=== PATIENT | female | born 1975 | race Caucasian/White ===

== ENCOUNTER 2018-06-30 11:00 | Emergency (ER) | payer BC ==
[~2018-06-30] VITALS: Ht 152.4 cm; Wt 47.3 kg
[~2018-06-30 11:00] MED LIST: BIRTH CONTROL PO
[2018-06-30 11:04] VITALS: Ht 152.4 cm; Wt 47.3 kg
[2018-06-30] MEDS ORDERED: KETOROLAC 15 MG INJ IV STA (11:21)
[2018-06-30] MEDS ORDERED: ACETAMINOPHEN 325 MG TAB PO STA (11:21)
[2018-06-30] MEDS ORDERED: ONDANSETRON 4 MG INJ IV STA (11:21)
[2018-06-30] MEDS ORDERED: SOD CHLORIDE 0.9% 1,000 ML IV STA (11:21)
--- NOTE | 2018-06-30 11:25 | ERD ---
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, RN in L&D, presents to the emergency department, complaining of worsening of symptoms including headache, body aches, dizziness, nausea and vomiting x5 during the last 24 hours. The patient denies fevers but feels chills and general malaise. No medications taken at this time. ROS All systems reviewed and are negative except as per history of present illness. Medications Home Meds Active Scripts Acetaminophen* (Tylenol*) 325 Mg Tablet, 2 TAB PO Q8 PRN for PAIN AND OR ELEVATED TEMP, #20 TAB Prov:NATALY ROSADO MD 06/30/18 Ibuprofen* (Motrin*) 400 Mg Tab, 400 MG PO Q8, #12 TAB Prov:NATALY ROSADO MD 06/30/18 Ondansetron Hcl* (Zofran*) 4 Mg Tablet, 4 MG PO Q8H PRN for NAUSEA AND/OR VOMITING, #12 TAB Prov:NATALY ROSADO MD 06/30/18 Reported Medications [ Control] No Conflict Check, PO DAILY 06/02/13 Allergies Allergies: Coded Allergies: No Known Allergy (Unverified , 08/12/09) PMhx/Soc Medical and Surgical Hx: pt denies Medical Hx, pt denies Surgical Hx History of Surgery: Yes (, BREAST AUGMENTATION) Anesthesia Reaction: No Hx Neurological Disorder: No Hx Respiratory Disorders: No Hx Cardiac Disorders: No Hx Psychiatric Problems: No Hx Miscellaneous Medical Probl: No Hx Alcohol Use: Yes Hx Substance Use: No Hx Tobacco Use: No Smoking Status: Never smoker Physical Exam Vitals Vital Signs Date Temp Pulse Resp B/P (MAP) Pulse Ox O2 O2 Flow FiO2 Time Delivery Rate 06/30/18 98.1 75 17 98/61 (73) 95 Room Air 13:52 06/30/18 97.1 78 19 107/66 94 11:04 (80) Physical Exam Const: No acute distress Head: Atraumatic Eyes: Normal Conjunctiva ENT: Normal External Ears, Nose and Mouth. Neck: Full range of motion. No meningismus. Resp: Clear to auscultation bilaterally Cardio: Regular rate and rhythm, no murmurs Abd: Soft, non tender, non distended. Normal bowel sounds Skin: No petechiae or rashes Back: No midline or flank tenderness Ext: No cyanosis, or edema Neur: Awake and alert Psych: Normal Mood and Affect Result Diagram: 06/30/18 1110 06/30/18 1110 Results 24 hrs Laboratory Tests Test 06/30/18 11:10 06/30/18 11:31 06/30/18 13:15 White Blood Count 10.2 10^3/ul Red Blood Count 4.71 10^6/ul Hemoglobin 13.0 g/dl Hematocrit 40.5 % Mean Corpuscular Volume 86.0 fl Mean Corpuscular Hemoglobin 27.6 pg Mean Corpuscular 32.1 g/dl Hemoglobin Concent Red Cell Distribution Width 12.6 % Platelet Count 391 10^3/UL Mean Platelet Volume 10.0 fl Immature Granulocytes % 0.300 % Neutrophils % 84.8 % Lymphocytes % 12.2 % Monocytes % 2.2 % Eosinophils % 0.2 % Basophils % 0.3 % Nucleated Red Blood Cells % 0.0 /100WBC Immature Granulocytes # 0.030 10^3/ul Neutrophils # 8.6 10^3/ul Lymphocytes # 1.2 10^3/ul Monocytes # 0.2 10^3/ul Eosinophils # 0.0 10^3/ul Basophils # 0.0 10^3/ul Nucleated Red Blood Cells # 0.0 10^3/ul Sodium Level 138 mmol/L Potassium Level 4.2 mmol/L Chloride Level 100 mmol/L Carbon Dioxide Level 27 mmol/L Anion Gap 11 Blood Urea Nitrogen 14 mg/dl Creatinine 0.82 mg/dl Est Glomerular Filtrat Rate mL/min > 60 mL/min Glucose Level 104 mg/dl Calcium Level 9.7 mg/dl POC Beta HCG, Qualitative NEGATIVE Bedside Urine pH (LAB) 6.5 Bedside Urine Protein (LAB) Trace Bedside Urine Glucose (UA) Negative Bedside Urine Ketones (LAB) 2+ Bedside Urine Blood 3+ Bedside Urine Nitrite (LAB) Negative Bedside Urine Leukocyte Esterase Trace (L Current Medications Medications Dose Sig/Paige Start Time Status Last (Trade) Ordered Route PRN Stop Time Admin Dose Reason Admin Sodium 1,000 ml @ Q2H STAT 06/30/18 DC 06/30/18 Chloride 500 mls/hr IV 11:21 11:41 06/30/18 13:20 650 mg ONCE STAT 06/30/18 DC 06/30/18 Acetaminophen PO 11:21 11:39 (Tylenol 06/30/18 11:26 Tab) Ketorolac 15 mg ONCE STAT 06/30/18 DC 06/30/18 Tromethamine IV 11:21 11:40 (Toradol) 06/30/18 11:26 Ondansetron 4 mg ONCE STAT 06/30/18 DC 06/30/18 HCl (Zofran IV 11: 11:39 Inj) 06/30/18 11:26 EKG read by me: Rate/Rhythm: Regular rate and rhythm at a rate of 78 Intervals: Normal No acute ST changes. No T wave inversion Impression: No evidence of acute ischemia or arrhythmia Procedures/MDM Differential diagnosis include but not limited to: Influenza, gastrointestinal infection bacterial/viral, UTI, appendicitis, colitis, food poisoning, food intolerance. Low suspicion for acute abdomen Physical examination and clinical presentation consistent most likely with viral gastroenteritis. During the ED course the patient remained stable, overall improvement of the symptoms after receiving treatment in the emergency department with IV fluids and IV medications. Clinical impression discussed with the patient who agrees with management. The patient is stable to be discharged home, Some side effects of prescribed medications (headache, rash, nausea, vomiting, diarrhea, interactions with other medications) were reviewed. The patient requires a follow up with the primary care provider in the next 48h. If symptoms persist, worsen or new symptoms develop, then patient should return to the ED immediately. Disclaimer: Inadvertent spelling and grammatical errors are likely due to EHR/dictation software use and do not reflect on the overall quality of patient care. Also, please note that the electronic time recorded on this note does not necessarily reflect the actual time of the patient encounter. Departure Diagnosis: Primary Impression: Gastroenteritis Additional Impression: Dizziness, nonspecific Condition: Stable Additional Instructions: Thank you very much for allowing us to participate in your care. Your health and safety is our top priority at [facility]. Call your primary care doctor TOMORROW for an appointment during the next 2-4 days and bring all the information and medications prescribed. Have prescriptions filled and follow precisely the directions on the label. If the symptoms get worse and your provider is unavailable, return to the Emergency Department immediately. NATALY ROSADO MD Jun 30, 2018 11:25
[2018-06-30] MEDS ORDERED: IBUP-1561 PO (13:36)
[2018-06-30] MEDS ORDERED: ACET325T33 PO (13:36)
[2018-06-30] MEDS ORDERED: ONDA4TAB8 PO (13:36)
[2018-06-30 13:52] VITALS: BP 98/61; PULSE 75; RESP 17
== END 2018-06-30 13:52 | disposition home or self-care (01) ==
LOC: FTE 11:00
DX: K52.9 Noninfective gastroenteritis and colitis, unspecified (principal)
CPT/HCPCS: 80048; 81003; 81025; 85025; 87400; 93005; 96374; 96375; 99284; J1885; J2405; J7030